=== PATIENT | male | born 1980 | race African-American/Black ===

== ENCOUNTER 2022-07-12 21:59 | Emergency (ER) | payer SELFPAY ==
[~2022-07-12] VITALS: Ht 167.6 cm; Wt 136.3 kg
[2022-07-12 22:50] VITALS: BP 135/94
[2022-07-12] MEDS ORDERED: METFORMIN HCL500 M1 PO (23:03)
[2022-07-12 23:21] LABS: URINE BILIRUBIN - DIPSTICK NEGATIVE (NEGATIVE); URINE BLOOD DIPSTICK NEGATIVE (NEGATIVE); URINE COLOR YELLOW; URINE GLUCOSE - DIPSTICK NEGATIVE (NEGATIVE); URINE KETONE TRACE mg/dL (NEGATIVE); URINE LEUK ESTERASE NEGATIVE (NEGATIVE); URINE PROTEIN - DIPSTICK NEGATIVE (NEG-TRACE); URINE SPECIFIC GRAVITY 1.025
[2022-07-12 23:25] LABS: URINE NITRITE - DIPSTICK NEGATIVE (Negative)
[2022-07-13] MEDS ORDERED: VIBRAMYCIN100 M1 PO (01:37)
[2022-07-13] MEDS ORDERED: NAPROXEN500 MG PO (01:37)
[2022-07-13 01:44] VITALS: BP 135/94
== END 2022-07-13 01:59 | disposition home or self-care (01) | DRG 728 ==
LOC: ED 21:59
PROVIDERS: Emergency Medicine
DX: N45.1 Epididymitis (principal)

== ENCOUNTER 2022-08-31 11:38 | Emergency (ER) | payer OTHER ==
[2022-08-31] VITALS (7 sets, daily range): BP systolic 126–143; BP diastolic 65–88
[~2022-08-31] VITALS: Ht 167.6 cm; Wt 136.0 kg
[~2022-08-31 11:38] MED LIST: METFORMIN HCL500 M1 PO; NAPROXEN500 MG PO; VIBRAMYCIN100 M1 PO
[2022-08-31] MEDS ORDERED: TORADOL PO (14:55)
== END 2022-08-31 15:20 | disposition home or self-care (01) | DRG 552 ==
LOC: ED 11:38
DX: M54.50 Low back pain, unspecified (principal); E11.9 Type 2 diabetes mellitus without complications; V43.52XA Car driver injured in collision with other type car in traffic accident, initial encounter; Z79.84 Long term (current) use of oral hypoglycemic drugs

== ENCOUNTER 2022-10-14 18:58 | Emergency (ER) | payer BC ==
[~2022-10-14] VITALS: Ht 167.6 cm; Wt 131.0 kg
[~2022-10-14 18:58] MED LIST changes: +TORADOL PO
[2022-10-14 19:18] VITALS: BP 128/84
[2022-10-14 19:30] VITALS: BP 123/80
[2022-10-14 19:46] VITALS: BP 127/80
[2022-10-14 20:01] VITALS: BP 133/70
[2022-10-14] MEDS ORDERED: KENALOG15 GM/TUBE EX (20:02)
[2022-10-14 20:15] VITALS: BP 135/82
[2022-10-14 21:21] VITALS: BP 133/70
== END 2022-10-14 21:22 | disposition home or self-care (01) | DRG 153 ==
LOC: ED 18:58
DX: J02.0 Streptococcal pharyngitis (principal); L23.2 Allergic contact dermatitis due to cosmetics; E11.9 Type 2 diabetes mellitus without complications; Z79.84 Long term (current) use of oral hypoglycemic drugs
CPT/HCPCS: J0561

== ENCOUNTER 2023-07-22 12:53 | Emergency (ER) | payer BC ==
[~2023-07-22] VITALS: Ht 167.6 cm; Wt 99.7 kg
[~2023-07-22 12:53] MED LIST changes: +KENALOG15 GM/TUBE EX
[2023-07-22 13:00] VITALS: BP 131/90
[2023-07-22 13:16] VITALS: BP 136/87
[2023-07-22 13:30] VITALS: BP 138/78
[2023-07-22] MEDS ORDERED: DEXAMETHASONE SOD. PHOSPHATE 10 MG/ML VIAL IM ONE (13:30)
[2023-07-22] MEDS ORDERED: PREDNISONE20 MG PO (13:37)
[2023-07-22 13:46] VITALS: BP 136/87
== END 2023-07-22 13:50 | disposition home or self-care (01) | DRG 918 ==
LOC: ED 12:53
DX: T65.6X1A Toxic effect of paints and dyes, not elsewhere classified, accidental (unintentional), initial encounter (principal); L23.4 Allergic contact dermatitis due to dyes; E11.9 Type 2 diabetes mellitus without complications; Z79.84 Long term (current) use of oral hypoglycemic drugs